=== PATIENT | female | born 1990 | race Caucasian/White ===

== ENCOUNTER 2020-03-11 14:34 | Inpatient (IN) | payer OTHER ==
[~2020-03-11] VITALS: Ht 170.2 cm; Wt 56.8 kg
[2020-03-11 15:05] LABS: MEAN CORPUSCULAR HEMOGLOBIN 30.4 pg (27.0-34.8); MEAN CORPUSCULAR HGB CONC 32.2 g/dL (32.4-35.8); MEAN PLATELET VOLUME 6.5 fL (7.4-10.4); PLATELET COUNT 723 x10^3/uL (130-400); RED CELL DISTRIBUTION WIDTH 15.3 % (9.6-15.2)
[2020-03-11 15:17] LABS: ALANINE AMINOTRANSFERASE 49 U/L (12-78); ALBUMIN 2.3 g/dL (3.4-5.0); ANION GAP 11 mmol/L (5-15); CALCIUM 8.9 mg/dL (8.5-10.1); CHLORIDE 95 mmol/L (98-107); CREATININE 0.92 mg/dL (0.55-1.02)
[2020-03-11 15:21] LABS: ALKALINE PHOSPHATASE 128 U/L (45-117); BILIRUBIN,TOTAL 0.5 mg/dL (0.2-1.0); TOTAL PROTEIN 7.1 g/dL (6.4-8.2)
[2020-03-11] MEDS ORDERED: SODIUM CHLORIDE FLUSH 10ML SYR IVF ONE (15:30)
[2020-03-11] MEDS ORDERED: MORPHINE SULFATE 4 MG/ML, 1ML IVPush PRN (15:30)
[2020-03-11] MEDS ORDERED: ONDANSETRON 2MG/ML, 2ML IVPush ONE (15:30)
[2020-03-11] MEDS ORDERED: SODIUM CHLORIDE 0.9% 1,000ML IVBOLUS ONE ×2 (15:30→17:00)
[2020-03-11 15:33] LABS: MD YES
[2020-03-11 15:38] LABS: BAND#(MANUAL) 3.34 x10^3/uL; BANDS%(MANUAL) 21 % (0-7); LYMPH#(MANUAL) 1.43 x10^3/uL (1-3.4); LYMPHS% (MANUAL) 9 % (22-44); METAMYELOCYTES# (MANUAL) 0.32 x10^3/uL (0-0); METAMYELOCYTES% (MANUAL) 2 % (0-1); MONOS#(MANUAL) 1.11 x10^3/uL (0.3-2.7); MONOS% (MANUAL) 7 % (2-9); MYELOCYTES# (MANUAL) 0.16 x10^3/uL (0-0); MYELOCYTES% (MANUAL) 1 % (0-0); SEG#(MANUAL) 9.54 x10^3/uL (1.8-6.8); SEGS% (MANUAL) 60 % (42-75)
[2020-03-11 15:42] LABS: <PLATELET ESTIMATE> INCREASED; HYPOCHROMIA 1+; POLYCHROMASIA 1+
[2020-03-11 15:43] LABS: <PLT MORPHOLOGY> NORMAL PLT MORPH; PMNS WITH VACUOLES 1+; TOXIC GRAN 1+
[2020-03-11] MEDS ORDERED: ONDANSETRON 2MG/ML, 2ML ONE (16:10)
[2020-03-11] MEDS ORDERED: MORPHINE SULFATE 4 MG/ML, 1ML ONE (16:10)
[2020-03-11] MEDS ORDERED: OMNIPAQUE 350 MG/ML, 100ML BOTTLE ONE (16:53)
--- NOTE | 2020-03-11 16:57 | NUR ---
Pt medicated for pain and nausea, bolus infusing. Back from CT. Lab at bedside for CX. Pt without complaint at this time. VS updated. Will monitor.
[2020-03-11 16:58] LABS: MICROSCOPIC INDICATED
[2020-03-11] MEDS ORDERED: CEFTRIAXONE PMX 1GM/50ML 50 ML IVPB ONE (17:00)
--- NOTE | 2020-03-11 17:20 | NUR ---
Pt sleeping, appears comfortable. Blood CX drawn.
[2020-03-11] MEDS ORDERED: CEFTRIAXONE PMX 1GM/50ML 50 ML ONE (17:23)
[2020-03-11 17:24] LABS: CLOSTRIDIUM DIFFICILE ANTIGEN NEGATIVE; CLOSTRIDIUM DIFFICILE TOXIN NEGATIVE (Negative)
--- NOTE | 2020-03-11 17:28 | NUR ---
Pt states pain, nausea resolved. ABX infusing.
[2020-03-11] MEDS ORDERED: BALS750C14 PO (17:31)
[2020-03-11] MEDS ORDERED: METRONIDAZOLE PMX 500MG/100ML 100 ML IV ONE (18:30)
[2020-03-11] MEDS ORDERED: METRONIDAZOLE PMX 500MG/100ML 100 ML ONE (18:40)
--- NOTE | 2020-03-11 18:51 | NUR ---
Ptresting, seen by GI. Kay infgian
[2020-03-11] MEDS: SODIUM CHLORIDE 0.9% 1,000 ML IV SCH (18:59)
[2020-03-11] MEDS ORDERED: ACETAMINOPHEN 325 MG TABLET PO PRN (19:00)
[2020-03-11 19:40] VITALS: BP 112/67
[2020-03-11 19:41] LABS: HCT (SEDRATE) 30.6 % (34.6-47.8)
[2020-03-11] MEDS: PANTOPRAZOLE 20MG TABLET PO SCH (21:54)
[2020-03-11] MEDS: morphine SULFATE 10 MG/ML, 1ML IVPush PRN (22:05)
[2020-03-12 00:58] VITALS: BP 113/71
[2020-03-12] MEDS: METRONIDAZOLE PMX 500MG/100ML 100 ML IV SCH ×4 (01:04→20:14)
[2020-03-12] MEDS: BUDESONIDE 3 MG CAP DR.ER PO SCH ×2 (01:04→11:20)
[2020-03-12] MEDS: ONDANSETRON 2MG/ML, 2ML IVPush PRN (01:13)
[2020-03-12 06:07] LABS: ANION GAP 13 mmol/L (5-15); CALCIUM 7.8 mg/dL (8.5-10.1); CHLORIDE 99 mmol/L (98-107)
[2020-03-12 06:08] LABS: MEAN CORPUSCULAR HEMOGLOBIN 30.3 pg (27.0-34.8); MEAN CORPUSCULAR HGB CONC 31.9 g/dL (32.4-35.8); MEAN PLATELET VOLUME 7.2 fL (7.4-10.4); PLATELET COUNT 610 x10^3/uL (130-400); RED BLOOD COUNT 3.24 x10^6/uL (3.82-5.3); RED CELL DISTRIBUTION WIDTH 15.2 % (9.6-15.2)
[2020-03-12 06:09] LABS: CREATININE 0.65 mg/dL (0.55-1.02)
[2020-03-12 06:38] LABS: MD YES
[2020-03-12 06:42] LABS: BAND#(MANUAL) 3.56 x10^3/uL; BANDS%(MANUAL) 27 % (0-7); LYMPH#(MANUAL) 1.06 x10^3/uL (1-3.4); LYMPHS% (MANUAL) 8 % (22-44); METAMYELOCYTES# (MANUAL) 0.13 x10^3/uL (0-0); METAMYELOCYTES% (MANUAL) 1 % (0-1); MONOS#(MANUAL) 0.26 x10^3/uL (0.3-2.7); MONOS% (MANUAL) 2 % (2-9); POLYCHROMASIA 1+; SEG#(MANUAL) 8.18 x10^3/uL (1.8-6.8); SEGS% (MANUAL) 62 % (42-75)
[2020-03-12 06:43] LABS: <PLATELET ESTIMATE> INCREASED; <PLT MORPHOLOGY> NORMAL PLT MORPH
[2020-03-12 07:20] VITALS: BP 107/64
[2020-03-12] MEDS ORDERED: POTASSIUM CHLORIDE 20 MEQ TAB.ER.PRT PO ONE (07:30)
[2020-03-12] MEDS: MESALAMINE 1.2 GM TABLET.DR PO SCH (08:26)
[2020-03-12] MEDS: morphine SULFATE 10 MG/ML, 1ML IVPush PRN ×4 (08:28→22:35)
[2020-03-12] MEDS: PANTOPRAZOLE 20MG TABLET PO SCH ×2 (11:20→20:15)
[2020-03-12 13:34] VITALS: BP 104/67
[2020-03-12] MEDS: CEFTRIAXONE PMX 2GM/50ML 50 ML IV SCH (17:39)
[2020-03-12 22:02] VITALS: BP 102/66
[2020-03-12 22:59] VITALS: BP 111/77
[2020-03-13] MEDS: METRONIDAZOLE PMX 500MG/100ML 100 ML IV SCH ×4 (02:13→20:22)
[2020-03-13 02:14] VITALS: BP 108/75
[2020-03-13 05:25] LABS: CHLORIDE 104 mmol/L (98-107)
[2020-03-13 05:30] LABS: MEAN CORPUSCULAR HEMOGLOBIN 30.9 pg (27.0-34.8); MEAN CORPUSCULAR HGB CONC 32.4 g/dL (32.4-35.8); MEAN PLATELET VOLUME 7.4 fL (7.4-10.4); PLATELET COUNT 608 x10^3/uL (130-400); RED CELL DISTRIBUTION WIDTH 15.5 % (9.6-15.2)
[2020-03-13 05:31] LABS: ANION GAP 7 mmol/L (5-15); CALCIUM 8.2 mg/dL (8.5-10.1); CREATININE 0.43 mg/dL (0.55-1.02)
[2020-03-13 06:03] LABS: MD YES
[2020-03-13 06:09] LABS: ANISOCYTOSIS 1+; BAND#(MANUAL) 1.81 x10^3/uL; BANDS%(MANUAL) 21 % (0-7); EOS#(MANUAL) 0.26 x10^3/uL (0.0-0.4); EOS% (MANUAL) 3 % (1-7); LYMPHS% (MANUAL) 14 % (22-44); MONOS#(MANUAL) 0.52 x10^3/uL (0.3-2.7); MONOS% (MANUAL) 6 % (2-9); SEG#(MANUAL) 4.82 x10^3/uL (1.8-6.8); SEGS% (MANUAL) 56 % (42-75)
[2020-03-13 06:10] LABS: <PLATELET ESTIMATE> INCREASED; <PLT MORPHOLOGY> NORMAL PLT MORPH; POLYCHROMASIA 1+
[2020-03-13 07:18] VITALS: BP 111/74
[2020-03-13] MEDS: MESALAMINE 1.2 GM TABLET.DR PO SCH (08:02)
[2020-03-13] MEDS: BUDESONIDE 3 MG CAP DR.ER PO SCH (08:03)
[2020-03-13] MEDS: PANTOPRAZOLE 20MG TABLET PO SCH ×2 (08:03→20:22)
[2020-03-13] MEDS: ONDANSETRON 2MG/ML, 2ML IVPush PRN ×2 (08:04→18:16)
[2020-03-13] MEDS: IRON SUCROSE COMPLEX 100MG/5ML IV SCH (10:16)
[2020-03-13 13:19] VITALS: BP 107/67
[2020-03-13] MEDS: morphine SULFATE 10 MG/ML, 1ML IVPush PRN ×2 (13:26→18:13)
[2020-03-13] MEDS: CEFTRIAXONE PMX 2GM/50ML 50 ML IV SCH (17:06)
[2020-03-13 19:10] VITALS: BP 108/75
[2020-03-13] MEDS: SODIUM CHLORIDE 0.9% 1,000 ML IV SCH (20:22)
[2020-03-14 00:03] VITALS: BP 102/66
[2020-03-14] MEDS: METRONIDAZOLE PMX 500MG/100ML 100 ML IV SCH ×4 (02:13→19:51)
[2020-03-14 05:10] LABS: MEAN CORPUSCULAR HEMOGLOBIN 30.8 pg (27.0-34.8); MEAN CORPUSCULAR HGB CONC 33.2 g/dL (32.4-35.8); MEAN PLATELET VOLUME 6.8 fL (7.4-10.4); PLATELET COUNT 699 x10^3/uL (130-400); RED BLOOD COUNT 2.99 x10^6/uL (3.82-5.3)
[2020-03-14 07:55] VITALS: BP 113/74
[2020-03-14] MEDS: MESALAMINE 1.2 GM TABLET.DR PO SCH (08:21)
[2020-03-14] MEDS: PANTOPRAZOLE 20MG TABLET PO SCH ×2 (08:22→19:50)
[2020-03-14] MEDS: IRON SUCROSE COMPLEX 100MG/5ML IV SCH (08:23)
[2020-03-14] MEDS: ONDANSETRON 2MG/ML, 2ML IVPush PRN (08:37)
[2020-03-14 08:45] LABS: MD YES
[2020-03-14 08:49] LABS: <PLATELET ESTIMATE> INCREASED; <PLT MORPHOLOGY> NORMAL PLT MORPH; ANISOCYTOSIS 1+; BAND#(MANUAL) 2.05 x10^3/uL; BANDS%(MANUAL) 18 % (0-7); EOS#(MANUAL) 0.11 x10^3/uL (0.0-0.4); EOS% (MANUAL) 1 % (1-7); LYMPH#(MANUAL) 1.94 x10^3/uL (1-3.4); LYMPHS% (MANUAL) 17 % (22-44); METAMYELOCYTES# (MANUAL) 0.11 x10^3/uL (0-0); METAMYELOCYTES% (MANUAL) 1 % (0-1); MONOS% (MANUAL) 7 % (2-9); POLYCHROMASIA 1+; SEG#(MANUAL) 6.38 x10^3/uL (1.8-6.8); SEGS% (MANUAL) 56 % (42-75)
[2020-03-14] MEDS ORDERED: BUDESONIDE 3 MG CAP DR.ER PO SCH (09:00)
[2020-03-14] MEDS: LIDODERM 5% PATCH TD SCH (10:22)
[2020-03-14 12:41] VITALS: BP 102/68
[2020-03-14] MEDS: CEFTRIAXONE PMX 2GM/50ML 50 ML IV SCH (16:55)
[2020-03-14 19:13] VITALS: BP 102/66
[2020-03-14] MEDS ORDERED: LIDODERM REMOVE PATCH NOTE XX SCH (21:30)
[2020-03-15 00:56] VITALS: BP 104/62
[2020-03-15] MEDS: METRONIDAZOLE PMX 500MG/100ML 100 ML IV SCH ×3 (01:48→15:01)
[2020-03-15] MEDS: SODIUM CHLORIDE 0.9% 1,000 ML IV SCH (05:35)
[2020-03-15 05:40] LABS: ANION GAP 8 mmol/L (5-15); CALCIUM 7.9 mg/dL (8.5-10.1); CHLORIDE 105 mmol/L (98-107); CREATININE 0.38 mg/dL (0.55-1.02); MEAN CORPUSCULAR HEMOGLOBIN 30.5 pg (27.0-34.8); MEAN PLATELET VOLUME 6.7 fL (7.4-10.4); PLATELET COUNT 734 x10^3/uL (130-400); RED BLOOD COUNT 2.89 x10^6/uL (3.82-5.3); RED CELL DISTRIBUTION WIDTH 14.9 % (9.6-15.2)
[2020-03-15] MEDS ORDERED: POTASSIUM CHLORIDE 20 MEQ TAB.ER.PRT PO ONE (06:30)
[2020-03-15 06:43] LABS: MD YES
[2020-03-15 06:45] LABS: BAND#(MANUAL) 0.59 x10^3/uL; BANDS%(MANUAL) 5 % (0-7); EOS#(MANUAL) 0.12 x10^3/uL (0.0-0.4); EOS% (MANUAL) 1 % (1-7); LYMPH#(MANUAL) 1.87 x10^3/uL (1-3.4); LYMPHS% (MANUAL) 16 % (22-44); MONOS#(MANUAL) 0.35 x10^3/uL (0.3-2.7); MONOS% (MANUAL) 3 % (2-9); SEG#(MANUAL) 8.78 x10^3/uL (1.8-6.8); SEGS% (MANUAL) 75 % (42-75)
[2020-03-15 06:46] LABS: <PLATELET ESTIMATE> INCREASED; <PLT MORPHOLOGY> NORMAL PLT MORPH; ANISOCYTOSIS 1+; POLYCHROMASIA 1+
[2020-03-15] MEDS ORDERED: MAGNESIUM SULFATE/D5W 100 ML IVPB ONE (07:00)
[2020-03-15 07:05] VITALS: BP 114/76
[2020-03-15] MEDS: IRON SUCROSE COMPLEX 100MG/5ML IV SCH (08:48)
[2020-03-15] MEDS: PANTOPRAZOLE 20MG TABLET PO SCH (08:48)
[2020-03-15] MEDS: LIDODERM 5% PATCH TD SCH (08:49)
[2020-03-15] MEDS: ONDANSETRON 2MG/ML, 2ML IVPush PRN (09:03)
[2020-03-15] MEDS: MESALAMINE 1.2 GM TABLET.DR PO SCH (10:32)
[2020-03-15 13:07] VITALS: BP 102/67
[2020-03-15] MEDS ORDERED: ONDA4TAB7 PO (13:39)
[2020-03-15] MEDS ORDERED: METR500T PO (13:39)
[2020-03-15] MEDS ORDERED: PANT20TA4 PO (13:39)
[2020-03-15] MEDS ORDERED: LIDO700A20 TD (13:39)
[2020-03-15] MEDS ORDERED: MESA1.2T PO (13:39)
[2020-03-15] MEDS ORDERED: PRED20TA PO (13:39)
[2020-03-15] MEDS ORDERED: CIPR500T87 PO (13:39)
[2020-03-15] MEDS ORDERED: POTA20TA6 PO (13:39)
[2020-03-15] MEDS: CEFTRIAXONE PMX 2GM/50ML 50 ML IV SCH (17:00)
== END 2020-03-15 18:08 | disposition home or self-care (01) | DRG 872 ==
LOC: ED 15:58 → EDIP 19:36 → 3N 19:37
PROVIDERS: ADMIT Family Medicine; ATTEND Hospitalist
DX: A41.9 Sepsis, unspecified organism (principal); E87.1 Hypo-osmolality and hyponatremia; E87.2 Acidosis; K51.90 Ulcerative colitis, unspecified, without complications; K56.609 Unspecified intestinal obstruction, unspecified as to partial versus complete obstruction; D47.3 Essential (hemorrhagic) thrombocythemia; E87.6 Hypokalemia; D50.9 Iron deficiency anemia, unspecified; K52.9 Noninfective gastroenteritis and colitis, unspecified; M54.2 Cervicalgia; Z79.899 Other long term (current) drug therapy
CPT/HCPCS: 36415; 74018; 74177; 80048; 80053; 81001; 82728; 83540; 83550; 83605; 83690; 83735; 83993; 84703; 85025; 85651; 86140; 87040; 87324; 89055; 96374; 96375; G0378; J0696; J1756; J2405; Q9967; J2270; J7030; J7512